=== PATIENT | male | born 1960 | race Caucasian/White ===

== ENCOUNTER 2017-10-15 16:57 | Emergency (ER) | payer OTHER ==
[~2017-10-15] VITALS: Ht 182.9 cm; Wt 108.4 kg
[~2017-10-15 16:57] MED LIST: CETIRIZINE HCL10 M2 PO; FLOMAX0.4 MG PO; FLONASE16 G1 BOTH NARES; NORCO 5/3251 TABLET PO; ZOFRAN ODT4 MG PO
[2017-10-15 17:49] LABS: HEMATOCRIT 43.3 % (38.0-50.0); HEMOGLOBIN 14.9 G/DL (12.5-16.6); MCH 29.7 PG (29.0-34.0); MCHC 34.4 G/DL (30.0-36.0); MCV 86.4 FL (86-99); PLATELET COUNT 150 K/uL (156-360); RBC DIS.WIDTH-CV 12.1 % (11.8-14.6); RBC DIS.WIDTH-SD 38.4 % (39-53); RED BLOOD COUNT 5.01 M/uL (4.00-5.50); WHITE BLOOD COUNT 6.5 K/uL (4.1-10.2)
[2017-10-15 18:01] LABS: ALBUMIN 3.9 g/dL (3.2-4.8)
[2017-10-15 18:02] LABS: CHLORIDE 102 mEq/L (99-109); SODIUM 135 mEq/L (136-147)
[2017-10-15 18:04] LABS: GLUCOSE 161 mg/dL (70-99); TOTAL PROTEIN 6.7 g/dL (6.4-8.3)
[2017-10-15 18:06] LABS: TOTAL BILIRUBIN 0.5 mg/dL (0.0-1.0)
[2017-10-15 18:07] LABS: ALKALINE PHOSPHATASE 68 IU/L (3-129)
[2017-10-15 18:08] LABS: CREATININE 0.9 mg/dL (0.6-1.3); GFR ESTIMATE (CALCULATED) > 59 mL/min/ (58.99-99999)
[2017-10-15 18:09] LABS: AST (GOT) 97 IU/L (2-34); UREA NITROGEN (BUN) 7 mg/dL (9-23)
[2017-10-15 18:10] LABS: ALT (GPT) 131 IU/L (3-49)
[2017-10-15 19:18] LABS: APPEARANCE CLEAR ((CLEAR)); BILIRUBIN NEGATIVE; BLOOD NEGATIVE; COLOR YELLOW ((YELLOW)); GLUCOSE (STRIP) 50; KETONES NEGATIVE; LEUKOCYTES NEGATIVE; NITRITE NEGATIVE; PROTEIN (STRIP) 30; SPECIFIC GRAVITY 1.028 (1.000-1.030); UCUL ADDED? NO; UROBILINOGEN 0.2 MG/DL (0.2-1.0)
[2017-10-15] MEDS ORDERED: AZITHROMYCIN250 MG1 PO (20:04)
[2017-10-15] MEDS ORDERED: TESSALON PERLE100 MG PO (20:07)
[2017-10-15 20:21] VITALS: BP 109/61
== END 2017-10-15 20:24 | disposition home or self-care (01) ==
LOC: EME 16:57
PROVIDERS: Physician Assistant Medical
DX: J10.00 Influenza due to other identified influenza virus with unspecified type of pneumonia (principal); J18.9 Pneumonia, unspecified organism; Z87.442 Personal history of urinary calculi; Z88.0 Allergy status to penicillin
CPT/HCPCS: 71046; 80053; 81003; 85027; 87502; 99281; 99284; J7030